=== PATIENT | female | born 1990 | race African-American/Black ===

== ENCOUNTER 2017-07-13 09:59 | Emergency (ER) | payer MEDICAID, OTHER ==
[~2017-07-13] VITALS: Ht 154.9 cm; Wt 47.0 kg
[2017-07-13 14:40] LABS: BASOPHILS % 0.6 % (0.0-2.0); EOSINOPHILS % 0.5 % (0.0-5.0); HEMATOCRIT. 35.6 % (36.0-48.0); HEMOGLOBIN. 11.5 g/dL (12.0-16.0); LYMPHOCYTES % 10.1 % (20.0-50.0); MEAN CORPUSCULAR HEMOGLOBIN 27.4 pg (28.0-32.0); MEAN CORPUSCULAR VOLUME 85.1 fL (81.0-99.0); MEAN PLATELET VOLUME 7.3 fl (7.4-10.4); MONOCYTES % 7.3 % (2.0-8.0); NEUTROPHILS % 81.5 % (40.0-76.0); PLATELET 277 x1000/uL (130-400); RED BLOOD CELL COUNT 4.18 mill/uL (4.2-5.4); RED CELL DISTRIBUTION WIDTH 15.2 % (11.6-14.6)
[2017-07-13 14:54] LABS: CARBON DIOXIDE 25 mEq/L (21-32); CHLORIDE 102 mEq/L (98-107)
[2017-07-13] MEDS ORDERED: SODIUM CHLORIDE 0.9% 1,000 ML IV NR (14:56)
[2017-07-13] MEDS ORDERED: ONDANSETRON HCL 4MG/2ML VIAL IV NR (15:00)
[2017-07-13] MEDS ORDERED: ACETAMINOPHEN 500MG TABLET PO NR (15:00)
[2017-07-13 15:09] LABS: B-HCG QUANTITATIVE 37882 mIU/mL (<3)
[2017-07-13 16:39] LABS: KETONES URINE NEGATIVE (NEGATIVE); LEUKOCYTE ESTERASE URINE 1+ (NEGATIVE); NITRITE URINE NEGATIVE (NEGATIVE); OCCULT BLOOD URINE NEGATIVE (NEGATIVE); PH URINE 7.5 (4.5-8.0); PROTEIN URINE NEGATIVE (NEGATIVE); SPECIFIC GRAVITY URINE 1.019 (1.005-1.030); UROBILINOGEN URINE 0.2 E.U./dL (0.2-1.0)
[2017-07-13 16:52] LABS: COLOR URINE YELLOW (YELLOW)
[2017-07-13 16:53] LABS: CLARITY URINE CLEAR (CLEAR)
[2017-07-13 17:12] VITALS: BP 109/58
== END 2017-07-13 17:36 | disposition home or self-care (01) ==
LOC: ER 09:59
DX: O23.41 Unspecified infection of urinary tract in pregnancy, first trimester (principal); O16.1 Unspecified maternal hypertension, first trimester; G44.89 Other headache syndrome; O26.891 Other specified pregnancy related conditions, first trimester; Z3A.14 14 weeks gestation of pregnancy; Z98.890 Other specified postprocedural states
CPT/HCPCS: 36415; 76801; 80053; 81001; 84702; 85025; 86850; 86900; 86901; 96361; 96374; 99285; J2405; J7030; Z7610

== ENCOUNTER 2017-11-24 15:05 | Observation (INO) | payer OTHER ==
[~2017-11-24] VITALS: Ht 157.5 cm; Wt 49.9 kg
[2017-11-24] MEDS ORDERED: PNV1TABL76 PO (15:51)
== END 2017-11-24 16:57 | disposition home or self-care (01) ==
LOC: L&D 15:05
PROVIDERS: ADMIT Obstetrics & Gynecology; ATTEND Obstetrics & Gynecology
DX: O42.913 Preterm premature rupture of membranes, unspecified as to length of time between rupture and onset of labor, third trimester (principal); O26.893 Other specified pregnancy related conditions, third trimester; R10.9 Unspecified abdominal pain; Z3A.32 32 weeks gestation of pregnancy
CPT/HCPCS: 99281; G0378

== ENCOUNTER 2017-12-18 19:29 | Observation (INO) | payer OTHER ==
[~2017-12-18] VITALS: Ht 154.9 cm; Wt 49.9 kg
[~2017-12-18 19:29] MED LIST: PNV1TABL76 PO
[2017-12-18] MEDS ORDERED: ACETAMINOPHEN 500MG TABLET PO SCH (20:15)
[2017-12-18] MEDS ORDERED: LACTATED RINGERS 1,000 ML IV SCH (20:15)
[2017-12-18 20:52] LABS: CLARITY URINE CLEAR (CLEAR); COLOR URINE YELLOW (YELLOW); KETONES URINE NEGATIVE (NEGATIVE); LEUKOCYTE ESTERASE URINE 2+ (NEGATIVE); NITRITE URINE NEGATIVE (NEGATIVE); OCCULT BLOOD URINE NEGATIVE (NEGATIVE); PROTEIN URINE NEGATIVE (NEGATIVE); SPECIFIC GRAVITY URINE 1.014 (1.005-1.030); UROBILINOGEN URINE 0.2 E.U./dL (0.2-1.0)
[2017-12-18 21:10] LABS: *AMPHETAMINES SCREEN URINE NEGATIVE (NEGATIVE); *BARBITURATES SCREEN URINE NEGATIVE (NEGATIVE); *BENZODIAZEPINES SCREEN URINE NEGATIVE (NEGATIVE); *COCAINE SCREEN URINE NEGATIVE (NEGATIVE); METHADONE URINE SCREEN NEGATIVE (NEGATIVE); OPIATES URINE SCREEN NEGATIVE (NEGATIVE); PHENCYCLIDINE URINE SCREEN NEGATIVE (NEGATIVE)
[2017-12-18 21:11] LABS: CANNABINOID URINE SCREEN NEGATIVE (NEGATIVE)
[2017-12-18] MEDS ORDERED: CEFAZOLIN 2,000 MG in DEXT 5% WATER 100 ML IV SCH (21:45)
[2017-12-18] MEDS ORDERED: TERBUTALINE SULFATE 1MG/ML VIAL SUBCUT PRN (21:45)
== END 2017-12-18 23:30 | disposition home or self-care (01) ==
LOC: L&D 19:29
PROVIDERS: ADMIT Specialist; ATTEND Specialist
DX: O26.893 Other specified pregnancy related conditions, third trimester (principal); R10.9 Unspecified abdominal pain; Z3A.35 35 weeks gestation of pregnancy
CPT/HCPCS: 80305; 81003; 87086; 96361; 96365; 96372; 99281; G0378; J0690; J3105; J7120; 96360; J7060